=== PATIENT | male | born 1945 | race Caucasian/White ===

== ENCOUNTER 2016-05-18 20:04 | Emergency (ER) | payer OTHER ==
[~2016-05-18] VITALS: Ht 175.3 cm; Wt 103.5 kg
[~2016-05-18 20:04] MED LIST: ACCUPRIL40 MG PO; ASPIR 8181 M1 PO; ASPIRIN EC325 MG PO; Aspirin PO; BACTRIM,SEPT1 TABLET PO; BAYER CHEWABLE81 MG PO; Coreg PO; EFFIENT10 MG PO; Ecotrin PO; Effient PO; FENTANYL1 EAC4 TD; GLIPIZIDE5 MG PO; GLUCOPHAGE1000 MG PO; GLUCOPHAGE500 MG PO; GLUCOTROL5 MG PO; Glucotrol PO; HYDROCODON-ACE1 EAC7 PO; K-DUR20 MEQ PO; LANTUS 10100 UNITS/ SC; LANTUS 3 M100 UNITS/ SC; LANTUS 3 M100 UNITS1 SC; LANTUS100 UNIT/1 SQ; LASIX20 MG PO; LIPITOR40 MG PO; LITE COAT ASPI325 M1 PO; LOFIBRA54 MG PO; Lipitor PO; NAPROSYN500 MG PO; NEXIUM40 MG PO; OMEPRAZOLE20 MG PO; OXAYDO5 MG PO; OXYCONTIN10 MG PO; PANTOPRAZOLE SO40 MG PO; PERCOCET 10/1 TABLET PO; PLAVIX75 MG PO; PROSCAR5 MG PO; PROTONIX40 MG PO; TAMSULOSIN HCL0.4 MG PO; TOPROL XL100 MG PO; TOPROL XL50 MG PO; Toprol XL PO; ULTRAM50 MG PO; [UNRECOGNIZED DRUG - REMARK]
[2016-05-18] MEDS ORDERED: LIDODERM 5% P1 PATCH TD (22:09)
[2016-05-18] MEDS ORDERED: SKELAXIN800 MG PO (22:09)
[2016-05-18 22:36] VITALS: BP 136/78
== END 2016-05-18 23:02 | disposition home or self-care (01) ==
LOC: EXP 20:04 → EME 20:04 → EXP 23:02
DX: M62.830 Muscle spasm of back (principal); E11.9 Type 2 diabetes mellitus without complications; I10 Essential (primary) hypertension; Z79.84 Long term (current) use of oral hypoglycemic drugs; Z79.4 Long term (current) use of insulin; Z79.82 Long term (current) use of aspirin; Z79.01 Long term (current) use of anticoagulants
CPT/HCPCS: 99281; 99283

== ENCOUNTER 2017-03-25 13:17 | Emergency (ER) | payer OTHER ==
[~2017-03-25] VITALS: Ht 175.3 cm; Wt 107.1 kg
[~2017-03-25 13:17] MED LIST changes: +LIDODERM 5% P1 PATCH TD; +SKELAXIN800 MG PO
[2017-03-25 14:31] LABS: HEMATOCRIT 47.3 % (38.0-50.0); MCHC 34.5 G/DL (30.0-36.0); MEAN PLAT.VOLUME 9.3 uM^3 (9.0-12.4); PLATELET COUNT 245 K/uL (156-360); RBC DIS.WIDTH-CV 14.1 % (11.8-14.6); RBC DIS.WIDTH-SD 42.8 % (39-53); RED BLOOD COUNT 5.63 M/uL (4.00-5.50); WHITE BLOOD COUNT 7.8 K/uL (4.1-10.2)
[2017-03-25 14:36] LABS: INTER. NORMALIZED RATIO 1.1; PROTHROMBIN TIME 12.6 SEC (10.2-12.9)
[2017-03-25 16:27] LABS: ANION GAP 10 MEQ/L (2-14); CHLORIDE 105 MEQ/L (99-109); POTASSIUM 3.9 MEQ/L (3.7-5.4); SAMPLE HEMOLYSIS CHECK 1; SAMPLE ICTERIC CHECK 0; SAMPLE LIPEMIA CHECK 1; SODIUM 138 MEQ/L (136-147); TOTAL BILIRUBIN 0.8 MG/DL (0.0-1.0)
[2017-03-25 16:32] LABS: ALKALINE PHOSPHATASE 74 IU/L (3-129); GFR ESTIMATE (CALCULATED) > 59 mL/min/; GLUCOSE 208 mg/dL (70-99); UREA NITROGEN (BUN) 18 mg/dL (9-23)
[2017-03-25 17:36] VITALS: BP 0/0
== END 2017-03-25 18:22 | disposition home or self-care (01) ==
LOC: EME 13:17
DX: E11.621 Type 2 diabetes mellitus with foot ulcer (principal); L97.529 Non-pressure chronic ulcer of other part of left foot with unspecified severity; L03.032 Cellulitis of left toe; E78.5 Hyperlipidemia, unspecified; I25.2 Old myocardial infarction; Z98.61 Coronary angioplasty status; Z79.4 Long term (current) use of insulin; Z85.9 Personal history of malignant neoplasm, unspecified; Z90.49 Acquired absence of other specified parts of digestive tract
CPT/HCPCS: 80053; 85027; 85610; 87070; 87075; 87076; 87077; 87147; 87186; 87205; 93926; 99281; 99284

== ENCOUNTER 2017-08-13 19:52 | Observation (INO) | payer OTHER ==
[~2017-08-13] VITALS: Ht 175.3 cm; Wt 104.6 kg
[2017-08-13 20:22] LABS: HEMATOCRIT 46.7 % (38.0-50.0); HEMOGLOBIN 16.4 G/DL (12.5-16.6); MCH 29.5 PG (29.0-34.0); MCHC 35.1 G/DL (30.0-36.0); MCV 84.1 FL (86-99); PLATELET COUNT 211 K/uL (156-360); RBC DIS.WIDTH-CV 14.1 % (11.8-14.6); RBC DIS.WIDTH-SD 43.2 % (39-53); RED BLOOD COUNT 5.55 M/uL (4.00-5.50); WHITE BLOOD COUNT 7.9 K/uL (4.1-10.2)
[2017-08-13 20:39] LABS: CHLORIDE 104 mEq/L (99-109); POTASSIUM 4.5 mEq/L (3.7-5.4); SODIUM 135 mEq/L (136-147)
[2017-08-13 20:40] LABS: GLUCOSE 318 mg/dL (70-99)
[2017-08-13 20:44] LABS: GFR ESTIMATE (CALCULATED) > 59 mL/min/ (58.99-99999)
[2017-08-13 20:45] LABS: UREA NITROGEN (BUN) 20 mg/dL (9-23)
[2017-08-13 20:48] LABS: TROP-I INTERPRETATION NEGATIVE; TROPONIN-I < 0.01 ng/mL (0.0-0.30)
[2017-08-13] MEDS ORDERED: NEURONTIN600 MG PO (22:38)
[2017-08-14 02:21] VITALS: BP 157/75
[2017-08-14 02:51] LABS: TROP-I INTERPRETATION NEGATIVE; TROPONIN-I < 0.01 ng/mL (0.0-0.30)
[2017-08-14 04:26] VITALS: BP 119/80
[2017-08-14 08:31] VITALS: BP 115/68
[2017-08-14 09:42] LABS: TROP-I INTERPRETATION NEGATIVE; TROPONIN-I 0.15 ng/mL (0.0-0.30)
[2017-08-14 12:35] VITALS: BP 145/70
[2017-08-14 16:05] LABS: TROP-I INTERPRETATION NEGATIVE; TROPONIN-I 0.01 ng/mL (0.0-0.30)
[2017-08-14 16:33] VITALS: BP 125/71
[2017-08-14 19:36] VITALS: BP 105/61
[2017-08-15 00:23] VITALS: BP 106/68
[2017-08-15 00:40] VITALS: BP 90/52
[2017-08-15 05:03] VITALS: BP 103/57
[2017-08-15 05:51] LABS: HDL CHOLESTEROL 25 MG/DL (Desirable>=40); LDL CHOLESTEROL 59 mg/dL (Desirable<100); NON-HDL CHOLESTEROL 116 mg/dL (Desirable<160); TOTAL CHOLESTEROL 141 mg/dL (Desirable<200); TRIGLYCERIDES 285 MG/DL (Normal: <150)
[2017-08-15 07:00] VITALS: BP 106/61
[2017-08-15 12:38] VITALS: BP 95/64
[2017-08-15] MEDS ORDERED: IMDUR30 MG PO (12:42)
[2017-08-15 15:12] VITALS: BP 101/57
== END 2017-08-15 15:46 | disposition home or self-care (01) ==
LOC: EME 19:52 → 4SOUTH 08-14 01:25 → EDOF 08-14 01:25 → ENRESERV 08-14 01:25 → 4SOUTH 08-14 02:09
PROVIDERS: Hospitalist; Physician Assistant; Physician Assistant Medical
DX: I25.110 Atherosclerotic heart disease of native coronary artery with unstable angina pectoris (principal); I10 Essential (primary) hypertension; E78.2 Mixed hyperlipidemia; E66.9 Obesity, unspecified; Z68.34 Body mass index [BMI] 34.0-34.9, adult; Z91.14 Patient's other noncompliance with medication regimen; Z91.19 Patient's noncompliance with other medical treatment and regimen; I25.2 Old myocardial infarction; Z79.82 Long term (current) use of aspirin; Z79.02 Long term (current) use of antithrombotics/antiplatelets; Z95.5 Presence of coronary angioplasty implant and graft; E11.65 Type 2 diabetes mellitus with hyperglycemia; N40.0 Benign prostatic hyperplasia without lower urinary tract symptoms; E11.40 Type 2 diabetes mellitus with diabetic neuropathy, unspecified; G89.29 Other chronic pain; Z87.891 Personal history of nicotine dependence; E11.51 Type 2 diabetes mellitus with diabetic peripheral angiopathy without gangrene; Z82.49 Family history of ischemic heart disease and other diseases of the circulatory system; Z90.49 Acquired absence of other specified parts of digestive tract; Z79.4 Long term (current) use of insulin
CPT/HCPCS: 71046; 80048; 80061; 82948; 84484; 85027; 93005; 99281; 99285; G0378; J1644; J1815; J7030

== ENCOUNTER 2017-12-03 19:08 | Emergency (ER) | payer OTHER ==
[~2017-12-03] VITALS: Ht 175.3 cm; Wt 108.3 kg
[~2017-12-03 19:08] MED LIST changes: +IMDUR30 MG PO; +NEURONTIN600 MG PO
[2017-12-03 21:11] LABS: HEMATOCRIT 43.6 % (38.0-50.0); HEMOGLOBIN 14.9 G/DL (12.5-16.6); MCH 30.2 PG (29.0-34.0); MCHC 34.2 G/DL (30.0-36.0); MCV 88.3 FL (86-99); PLATELET COUNT 220 K/uL (156-360); RBC DIS.WIDTH-CV 14.9 % (11.8-14.6); RBC DIS.WIDTH-SD 47.9 % (39-53); RED BLOOD COUNT 4.94 M/uL (4.00-5.50); WHITE BLOOD COUNT 8.9 K/uL (4.1-10.2)
[2017-12-03 21:17] LABS: CHLORIDE 109 mEq/L (99-109); POTASSIUM 4.4 mEq/L (3.7-5.4); SODIUM 140 mEq/L (136-147)
[2017-12-03 21:19] LABS: GLUCOSE 157 mg/dL (70-99); TOTAL PROTEIN 7.9 g/dL (6.4-8.3)
[2017-12-03 21:22] LABS: ALKALINE PHOSPHATASE 64 IU/L (3-129)
[2017-12-03 21:23] LABS: CREATININE 1.1 mg/dL (0.6-1.3); GFR ESTIMATE (CALCULATED) > 59 mL/min/ (58.99-99999)
[2017-12-03 21:24] LABS: AST (GOT) 23 IU/L (2-34); UREA NITROGEN (BUN) 25 mg/dL (9-23)
[2017-12-03 21:26] LABS: ALT (GPT) 23 IU/L (3-49)
[2017-12-03] MEDS ORDERED: GABAPENTIN600 MG PO (22:57)
[2017-12-04 00:20] VITALS: BP 143/74
== END 2017-12-04 00:20 | disposition home or self-care (01) ==
LOC: EME 19:08
PROVIDERS: Physician Assistant Medical
DX: L03.031 Cellulitis of right toe (principal); S92.421A Displaced fracture of distal phalanx of right great toe, initial encounter for closed fracture; E11.9 Type 2 diabetes mellitus without complications; W19.XXXA Unspecified fall, initial encounter; Y92.009 Unspecified place in unspecified non-institutional (private) residence as the place of occurrence of the external cause; E78.5 Hyperlipidemia, unspecified; I25.2 Old myocardial infarction; Z95.5 Presence of coronary angioplasty implant and graft; Z85.9 Personal history of malignant neoplasm, unspecified; Z90.49 Acquired absence of other specified parts of digestive tract; Z79.4 Long term (current) use of insulin; Z79.02 Long term (current) use of antithrombotics/antiplatelets
CPT/HCPCS: 73630; 80053; 83605; 85027; 87040; 99281; 99285; J0696; J2543; J7030